=== PATIENT | female | born 1955 | race Caucasian/White ===

== ENCOUNTER → 2017-02-03 13:27 | Outpatient (CLI) | payer MEDICAID ==
[2015-02-27 10:49] VITALS: BMI 40.6
[~2017-02-03 13:27] MED LIST: ACCUPRIL20 MG PO; ELIQUIS2.5 MG PO; K-TAB10 MEQ PO; KLONOPIN1 MG PO; LIPITOR40 MG PO; MAXZIDE 75/501 TAB PO; MS CONTIN15 MG PO; NORCO 7.5/325 T1 TA1 PO; OXYCODONE HCL5 MG PO; ROBAXIN-750750 MG PO; ULTRAM50 MG PO; ZOLOFT100 MG PO
[2017-02-03 14:48] LABS: BASOPHILS 0.3 % (0-2); EOSINOPHILS 2.5 % (0-7); HEMATOCRIT 42.1 % (36.0-48.0); HEMOGLOBIN 13.9 g/dL (12-16); LYMPHOCYTES 26.3 % (15-50); MCH 29.3 pg (26.0-34.0); MCV 88.6 fL (80.0-100.0); MONOCYTES 7.4 % (2-11); NEUTROPHILS 62.5 % (40-80); RBC 4.75 10x6/uL (4.00-5.40); RDW 13.7 % (11.5-14.5); WBC 7.3 10x3/uL (4.8-10.8)
[2017-02-03 14:53] LABS: PLATELET COUNT 223 10x3/uL (130-400)
[2017-02-03 15:58] LABS: ERYTHROCYTE SEDIMENTATION RATE 6 mm/hr (0-30)
== END | disposition home or self-care (01) ==
LOC: D.LABREF 13:27
PROVIDERS: Orthopaedic Surgery
DX: M25.562 Pain in left knee (principal)

== ENCOUNTER → 2017-03-08 09:18 | Outpatient (CLI) | payer MEDICAID ==
[2015-02-27 10:49] VITALS: BMI 40.6
== END | disposition home or self-care (01) ==
LOC: D.NM 09:18
DX: M25.562 Pain in left knee (principal)